=== PATIENT | male | born 1950 | race African-American/Black ===

== ENCOUNTER 2016-12-02 12:41 | Emergency (ER) | payer MEDICARE, MEDICAID ==
[~2016-12-02] VITALS: Ht 188 cm; Wt 68.5 kg
[~2016-12-02 12:41] MED LIST: AMLO10TA80 PO; EZET10TA PO; FINA5TAB11 PO; LISI-186 PO; METO50TA5 PO; PHEN-819 PO; PRAV40TA58 PO; TAMS0.4C31 PO
[2016-12-02] MEDS ORDERED: OXYC5TAB84 PO (13:12)
[2016-12-02] MEDS ORDERED: GADOBENATE DIMEGLUMINE 529 MG/ML 10ML IV ONE (14:08)
[2016-12-02] MEDS ORDERED: MORPHINE SULFATE 4 MG/ML CPJ (NOT FOR IM USE) IV STA (14:28)
[2016-12-02] MEDS ORDERED: ONDANSETRON HCL 4MG/2ML VIAL IV STA (14:28)
[2016-12-02 16:03] LABS: BASOPHILS % 0.7 % (0.0-2.0); HEMATOCRIT. 24.5 % (42.0-52.0); HEMOGLOBIN. 8.1 g/dL (14.0-18.0); LYMPHOCYTES % 7.4 % (20.0-50.0); MEAN CORPUSCULAR HEMOGLOBIN 28.1 pg (28.0-32.0); MEAN CORPUSCULAR VOLUME 84.7 fL (80.0-94.0); MEAN PLATELET VOLUME 7.2 fl (7.4-10.4); MONOCYTES % 9.1 % (2.0-8.0); NEUTROPHILS % 82.8 % (40.0-76.0); PLATELET 449 x1000/uL (130-400); RED BLOOD CELL COUNT 2.89 mill/uL (4.7-6.1); RED CELL DISTRIBUTION WIDTH 19.1 % (11.6-14.6)
[2016-12-02 16:07] LABS: INR 1.3
[2016-12-02 16:16] LABS: CARBON DIOXIDE 22 mEq/L (21-32); CHLORIDE 103 mEq/L (98-107); TROPONIN I < 0.02 ng/mL (0.00-0.04)
[2016-12-02] MEDS ORDERED: IBUPROFEN 800MG TABLET PO ONE (18:45)
[2016-12-02] MEDS ORDERED: HYDROCODONE/ACETAMINOPHEN 5/325MG TABLET PO ONE (18:45)
[2016-12-02 19:41] VITALS: BP 142/60
== END 2016-12-02 19:44 | disposition home or self-care (01) ==
LOC: ER 13:53
DX: M54.5 Low back pain (principal); I10 Essential (primary) hypertension; E87.1 Hypo-osmolality and hyponatremia; M51.26 Other intervertebral disc displacement, lumbar region; M51.36 Other intervertebral disc degeneration, lumbar region; Z85.51 Personal history of malignant neoplasm of bladder; D69.6 Thrombocytopenia, unspecified; D64.9 Anemia, unspecified; M48.06 Spinal stenosis, lumbar region
CPT/HCPCS: 36415; 72131; 72158; 80053; 84484; 85025; 85610; 96374; 96375; 99285; A9577; J2270; J2405